=== PATIENT | female | born 1980 | race Caucasian/White ===

== ENCOUNTER 2016-08-28 19:49 | Emergency (ER) | payer MEDICAID ==
[~2016-08-28] VITALS: Ht 157.5 cm; Wt 81.8 kg
[~2016-08-28 19:49] MED LIST: AMBIEN 10MG10 MG PO; AMBIEN 5MG TABLE5 MG PO; AMITRIPTYLINE H25 M1 PO; ATARAX 25MG25 MG/TAB PO; BACTRIM DS 8001 TAB PO; CALAN120 MG; CEPHALEXIN500 M1 PO; DEPAKOTE ER 50500 MG PO; DESYREL 50MG50 MG PO; FETZIMA120 PO; FIORICET 325 MG1 TA1 PO; FLEXERIL10 MG PO; FLOMAX 0.40.4 MG/CAP PO; LAMICTAL 100MG100 MG PO; LAMICTAL 25MG T25 MG PO; LAMICTAL XR300 MG PO; LAMICTAL150 MG PO; LEVAQUIN 5500 MG/TA1 PO; LEVAQUIN 750MG750 M1 PO; LORTAB 5/500 501 TAB PO; NEURONTIN300 MG/CAP PO; NORCO 325 MG-101 TAB PO; NORCO 325 MG-51 TAB PO; NORCO 325 MG-7.1 TAB PO; PERCOCET 325 MG1 TA2 PO; PERCOCET 325 MG1 TA3 PO; PERCR 7.5 PO; PHENERGAN 25 TA25 MG PO; PHENERGAN25 MG RC; PROAIR HFA0.09 MG/AC IH; PROMETHAZINE12.5 M5 PO; PROVENTIL0.09 MG/A1 IH; PYRIDIUM 100MG100 MG PO; RISPERDAL 1M1 MG/TAB PO; RISPERDAL1 MG PO; SENOKOT S 50 MG1 TAB PO; SINGULAIR; SINGULAIR 110 MG/TAB PO; TESSALON PERLE200 MG PO; TOPAMAX 100MG100 M1 PO; TOPAMAX 100MG100 MG PO; TOPAMAX50 MG PO; VALIUM 2MG T2 MG/TAB PO; XANAX .25M0.25 MG/TA PO; ZITHROMAX Z PA250 MG PO; ZOLOFT 50MG50 MG PO
[2016-08-28 22:19] VITALS: BP 132/82; PULSE 80; TEMP 98
== END 2016-08-28 22:20 | disposition home or self-care (01) ==
LOC: COL.ER 19:49
DX: G43.909 Migraine, unspecified, not intractable, without status migrainosus (principal)
CPT/HCPCS: J1170; J1200; J1885; J2765

== ENCOUNTER 2016-09-03 07:28 | Emergency (ER) | payer MEDICAID ==
[~2016-09-03] VITALS: Ht 157.5 cm; Wt 86.4 kg
[2016-09-03 07:30] VITALS: TEMP 97.5
[2016-09-03] MEDS ORDERED: IMITREX ST6 MG/0.51 SQ (07:42)
[2016-09-03] MEDS ORDERED: ZANAFLEX 4MG TAB4 MG PO (07:48)
[2016-09-03] MEDS ORDERED: NAMENDA 10MG TA10 MG PO (07:49)
[2016-09-03 08:23] VITALS: BP 132/79; PULSE 74
== END 2016-09-03 08:27 | disposition home or self-care (01) ==
LOC: COL.ER 07:28
DX: R07.9 Chest pain, unspecified (principal); T39.8X5A Adverse effect of other nonopioid analgesics and antipyretics, not elsewhere classified, initial encounter

== ENCOUNTER 2016-09-04 14:44 | Emergency (ER) | payer MEDICAID ==
[~2016-09-04] VITALS: Ht 157.5 cm; Wt 86.4 kg
[~2016-09-04 14:44] MED LIST changes: +IMITREX ST6 MG/0.51 SQ; +NAMENDA 10MG TA10 MG PO; +ZANAFLEX 4MG TAB4 MG PO
[2016-09-04 14:45] VITALS: TEMP 98.8
[2016-09-04 15:37] LABS: BASO # 0.1 (0.0-0.2); EOS # 0.2 (0.0-0.7); EOS % 2.7 % (0-4.0); GRAN # 2.6 (1.4-6.5); GRAN % 44.7 % (42.2-75.2); HEMATOCRIT 37.4 % (37.0-47.0); HEMOGLOBIN 12.6 g/dl (12.5-16.0); LYMPH # 2.5 (1.2-3.4); LYMPH % 42.3 % (20.0-51.0); MEAN CELL VOLUME 91 fl (80.0-100.0); MEAN CORPUSCULAR HEMOGLOBIN 31 pg (27.0-31.0); MEAN CORPUSCULAR HGB CONC 34 g/dl (33.0-37.0); MEAN PLATELET VOLUME 9.6 fl (7.4-10.4); MONO # 0.5 (0.1-0.6); PLATELET COUNT 290 K/mm3 (130-400); RED BLOOD COUNT 4.13 M/mm3 (4.10-5.30); REDCELL DISTRIBUTION WIDTH-CV 12.2 % (11.5-14.5); WHITE BLOOD COUNT 5.9 K/mm3 (4.8-10.8)
[2016-09-04 15:54] LABS: ADJUSTED CALCIUM 9.6 mg/dL (8.4-10.2); ALANINE AMINOTRANSFERASE 142 U/L (9-52); ALBUMIN 3.9 gm/dL (3.5-5.0); ALKALINE PHOSPHATASE 157 U/L (50-136); ANION GAP 12 mmol/L (7-16); BILIRUBIN,TOTAL 0.5 mg/dL (0.0-1.0); BLOOD UREA NITROGEN 14 mg/dL (7-17); C-REACTIVE PROTEIN 0.7 mg/dL (0.0-0.9); CALCIUM 9.5 mg/dL (8.4-10.2); CARBON DIOXIDE 25 mmol/L (22-30); CHLORIDE 104 mmol/L (98-107); CREATININE, serum 1.05 mg/dL (0.52-1.25); GLUCOSE 103 mg/dL (74-106); POTASSIUM 3.6 mmol/L (3.4-5.0); SODIUM 141 mmol/L (137-145)
[2016-09-04 16:03] LABS: TROPONIN-I < 0.012 ng/mL (0.000-0.034)
[2016-09-04 16:33] VITALS: BP 136/89; PULSE 93
== END 2016-09-04 16:46 | disposition home or self-care (01) ==
LOC: COL.ER 14:44
PROVIDERS: Physician Assistant
DX: R51 Headache (principal); R74.8 Abnormal levels of other serum enzymes; R03.0 Elevated blood-pressure reading, without diagnosis of hypertension
CPT/HCPCS: J1885

== ENCOUNTER 2016-09-22 19:16 | Emergency (ER) | payer MEDICAID ==
[~2016-09-22] VITALS: Ht 157.5 cm; Wt 86.4 kg
[2016-09-22 19:18] VITALS: TEMP 98.2
[2016-09-22] MEDS ORDERED: TOPROL XL 25MG25 MG PO (19:24)
[2016-09-22] MEDS ORDERED: SONATA5 MG (19:25)
[2016-09-22 22:43] VITALS: BP 150/92; PULSE 88
== END 2016-09-22 22:45 | disposition home or self-care (01) ==
LOC: COL.ER 19:16
DX: R07.9 Chest pain, unspecified (principal); I10 Essential (primary) hypertension
CPT/HCPCS: J1885

== ENCOUNTER 2016-10-02 19:17 | Emergency (ER) | payer MEDICAID ==
[~2016-10-02] VITALS: Ht 157.5 cm; Wt 86.4 kg
[2016-10-02 20:10] VITALS: BP 120/78; PULSE 80; TEMP 98.3
== END 2016-10-02 20:17 | disposition home or self-care (01) ==
LOC: COL.ER 19:17
DX: G43.909 Migraine, unspecified, not intractable, without status migrainosus (principal)
CPT/HCPCS: J1170; J1885; J2550

== ENCOUNTER → 2016-10-02 | Outpatient (CLI) | payer MEDICAID ==
[~2016-10-02] MED LIST changes: +SONATA5 MG; +TOPROL XL 25MG25 MG PO
== END ==
LOC: COL.RAD 10:00
DX: R07.89 Other chest pain (principal)

== ENCOUNTER 2017-11-21 21:02 | Emergency (ER) | payer MEDICAID ==
[~2017-11-21] VITALS: Ht 157.5 cm; Wt 93.6 kg
[2017-11-21 21:08] VITALS: BP 143/94; TEMP 98.2
[2017-11-21 22:22] VITALS: PULSE 88
== END 2017-11-21 22:24 | disposition home or self-care (01) ==
LOC: COL.ER 21:02
DX: G43.909 Migraine, unspecified, not intractable, without status migrainosus (principal); J45.909 Unspecified asthma, uncomplicated; F31.9 Bipolar disorder, unspecified; F41.9 Anxiety disorder, unspecified; F43.10 Post-traumatic stress disorder, unspecified
CPT/HCPCS: J0595; J1200; J1885; J2765

== ENCOUNTER 2017-11-27 21:54 | Emergency (ER) | payer MEDICAID ==
[~2017-11-27] VITALS: Ht 157.5 cm; Wt 93.6 kg
[2017-11-27 22:13] VITALS: BP 138/89; PULSE 93; TEMP 97.6
== END 2017-11-28 00:05 | disposition home or self-care (01) ==
LOC: COL.ER 21:54
DX: S40.012A Contusion of left shoulder, initial encounter (principal); J45.909 Unspecified asthma, uncomplicated; F43.10 Post-traumatic stress disorder, unspecified; F41.9 Anxiety disorder, unspecified; F31.9 Bipolar disorder, unspecified; G43.909 Migraine, unspecified, not intractable, without status migrainosus; W01.0XXA Fall on same level from slipping, tripping and stumbling without subsequent striking against object, initial encounter; Y92.410 Unspecified street and highway as the place of occurrence of the external cause

== ENCOUNTER 2017-12-11 15:53 | Emergency (ER) | payer MEDICAID ==
[~2017-12-11] VITALS: Ht 157.5 cm; Wt 92.3 kg
[2017-12-11 15:56] VITALS: TEMP 97.9
[2017-12-11 16:47] LABS: COLLECTION METHOD CLEAN CATCH
[2017-12-11 16:56] LABS: MUCOUS Present /lpf; PH 5 (5-8); URINE APPEARANCE Clear; URINE BACTERIA Rare /hpf; URINE BILIRUBIN Negative (NEGATIVE); URINE BLOOD Negative (NEGATIVE); URINE COLOR Yellow; URINE GLUCOSE Negative (NEGATIVE); URINE KETONE Negative (NEGATIVE); URINE LEUKOCYTE ESTERASE Negative (NEGATIVE); URINE NITRATE Negative (NEGATIVE); URINE PROTEIN(semi-quant) Negative (NEGATIVE); URINE RBC 0-2 /hpf; URINE UROBILINOGEN Negative (NEGATIVE)
[2017-12-11 17:34] VITALS: BP 131/84; PULSE 94
[2017-12-11] MEDS ORDERED: LIDODERM 5% PATC1 EA TP (18:08)
== END 2017-12-11 18:20 | disposition home or self-care (01) ==
LOC: COL.ER 15:53
PROVIDERS: Emergency Medicine
DX: M54.5 Low back pain (principal); Z87.442 Personal history of urinary calculi; Z90.49 Acquired absence of other specified parts of digestive tract; Z90.710 Acquired absence of both cervix and uterus
CPT/HCPCS: J1885

== ENCOUNTER 2017-12-20 20:53 | Emergency (ER) | payer MEDICAID ==
[~2017-12-20] VITALS: Ht 157.5 cm; Wt 90.5 kg
[~2017-12-20 20:53] MED LIST changes: +LIDODERM 5% PATC1 EA TP
[2017-12-20 20:59] VITALS: BP 157/91; TEMP 98.2
[2017-12-20] MEDS ORDERED: CEFTIN 250250 MG/TAB PO (22:52)
[2017-12-20 23:01] VITALS: PULSE 80
== END 2017-12-20 23:01 | disposition home or self-care (01) ==
LOC: COL.ER 20:53
DX: J02.0 Streptococcal pharyngitis (principal); J45.909 Unspecified asthma, uncomplicated; F41.9 Anxiety disorder, unspecified; F31.9 Bipolar disorder, unspecified; G43.909 Migraine, unspecified, not intractable, without status migrainosus; F43.10 Post-traumatic stress disorder, unspecified; G89.29 Other chronic pain; M54.9 Dorsalgia, unspecified; Z90.49 Acquired absence of other specified parts of digestive tract; Z90.710 Acquired absence of both cervix and uterus; Z98.51 Tubal ligation status

== ENCOUNTER 2018-01-07 17:01 | Emergency (ER) | payer MEDICAID ==
[~2018-01-07] VITALS: Ht 157.5 cm; Wt 89.5 kg
[~2018-01-07 17:01] MED LIST changes: +CEFTIN 250250 MG/TAB PO
[2018-01-07 17:06] VITALS: BP 147/88; TEMP 98.3
[2018-01-07] MEDS ORDERED: ZOLOFT 100MG100 MG PO (17:29)
[2018-01-07] MEDS ORDERED: ERGOCALCIFER50000 IU PO (17:29)
[2018-01-07] MEDS ORDERED: COMPAZINE 110 MG/TAB PO (17:30)
[2018-01-07 18:40] VITALS: PULSE 96
== END 2018-01-07 18:40 | disposition home or self-care (01) ==
LOC: COL.ER 17:01
DX: G43.909 Migraine, unspecified, not intractable, without status migrainosus (principal); F41.9 Anxiety disorder, unspecified; F43.10 Post-traumatic stress disorder, unspecified; Z90.710 Acquired absence of both cervix and uterus
CPT/HCPCS: J0595; J1200; J1885; J2765

== ENCOUNTER 2018-01-11 13:58 | Emergency (ER) | payer MEDICAID ==
[~2018-01-11] VITALS: Ht 157.5 cm; Wt 89.5 kg
[~2018-01-11 13:58] MED LIST changes: +COMPAZINE 110 MG/TAB PO; +ERGOCALCIFER50000 IU PO; +ZOLOFT 100MG100 MG PO
[2018-01-11 14:06] VITALS: BP 157/93; PULSE 95; TEMP 97.8
[2018-01-11] MEDS ORDERED: CARDIZEM CD 30300 MG PO (14:29)
== END 2018-01-11 16:16 | disposition home or self-care (01) ==
LOC: COL.ER 13:58
DX: G43.909 Migraine, unspecified, not intractable, without status migrainosus (principal); F31.9 Bipolar disorder, unspecified; Z90.49 Acquired absence of other specified parts of digestive tract; Z98.51 Tubal ligation status; Z98.890 Other specified postprocedural states
CPT/HCPCS: J1885; J2550

== ENCOUNTER 2018-02-17 14:21 | Emergency (ER) | payer MEDICAID ==
[~2018-02-17] VITALS: Ht 157.5 cm; Wt 88.2 kg
[~2018-02-17 14:21] MED LIST changes: +CARDIZEM CD 24240 MG PO
[2018-02-17 14:27] VITALS: BP 140/92; TEMP 98
[2018-02-17] MEDS ORDERED: FIORICET 325 MG1 TA1 PO (14:37)
[2018-02-17] MEDS ORDERED: DESYREL DIVIDO150 M1 PO (15:09)
[2018-02-17] MEDS ORDERED: PERCOCET 325 MG1 TAB PO (15:09)
[2018-02-17] MEDS ORDERED: ZOFRAN ODT4 MG PO (15:10)
[2018-02-17] MEDS ORDERED: ZANAFLEX 4MG TAB4 MG PO (15:10)
[2018-02-17] MEDS ORDERED: PROTONIX 40MG T40 MG PO (15:10)
[2018-02-17 15:12] LABS: BASO % 0.6 % (0.0-2.0); EOS # 0.2 (0.0-0.7); EOS % 2.9 % (0-4.0); GRAN # 2.7 (1.4-6.5); GRAN % 52.2 % (42.2-75.2); HEMATOCRIT 41.9 % (37.0-47.0); LYMPH # 1.9 (1.2-3.4); LYMPH % 36.8 % (20.0-51.0); MEAN CELL VOLUME 93 fl (80.0-100.0); MEAN CORPUSCULAR HEMOGLOBIN 31 pg (27.0-31.0); MEAN CORPUSCULAR HGB CONC 33 g/dl (33.0-37.0); MEAN PLATELET VOLUME 10.1 fl (7.4-10.4); MONO # 0.4 (0.1-0.6); MONO % 7.3 % (1.7-9.3); PLATELET COUNT 280 K/mm3 (130-400); RED BLOOD COUNT 4.49 M/mm3 (4.10-5.30)
[2018-02-17 15:16] LABS: PROTHROMBIN TIME 11.1 SECONDS (9.7-12.8)
[2018-02-17 15:19] LABS: PARTIAL THROMBOPLASTIN TIME 31.6 SECONDS (26.0-37.0)
[2018-02-17 15:25] LABS: ALANINE AMINOTRANSFERASE 48 U/L (9-52); ALBUMIN 4.2 gm/dL (3.5-5.0); ALKALINE PHOSPHATASE 113 U/L (50-136); ANION GAP 13 mmol/L (7-16); AST,SGOT 25 U/L (15-37); BILIRUBIN,TOTAL 0.2 mg/dL (0.0-1.0); BLOOD UREA NITROGEN 17 mg/dL (7-17); CALCIUM 9.5 mg/dL (8.4-10.2); CARBON DIOXIDE 26 mmol/L (22-30); CHLORIDE 104 mmol/L (98-107); CREATININE, serum 0.87 mg/dL (0.52-1.25); GLUCOSE 96 mg/dL (74-106); POTASSIUM 3.6 mmol/L (3.4-5.0); SODIUM 142 mmol/L (137-145); TOTAL PROTEIN 7.3 gm/dL (6.4-8.2)
[2018-02-17 15:35] LABS: TROPONIN-I < 0.012 ng/mL (0.000-0.034)
[2018-02-17 18:11] VITALS: PULSE 87
== END 2018-02-17 18:10 | disposition home or self-care (01) ==
LOC: COL.ER 14:21
PROVIDERS: Family Medicine
DX: I49.3 Ventricular premature depolarization (principal); G89.29 Other chronic pain; R07.89 Other chest pain; F41.9 Anxiety disorder, unspecified; G43.909 Migraine, unspecified, not intractable, without status migrainosus
CPT/HCPCS: J1170; J1885; J2060; J2550; J7030

== ENCOUNTER 2018-02-26 23:43 | Emergency (ER) | payer MEDICAID ==
[~2018-02-26 23:43] MED LIST changes: +DESYREL DIVIDO150 M1 PO; +PERCOCET 325 MG1 TAB PO; +PROTONIX 40MG T40 MG PO; +ZOFRAN ODT4 MG PO
[2018-02-27 00:35] LABS: BASO # 0.1 (0.0-0.2); BASO % 0.6 % (0.0-2.0); EOS # 0.2 (0.0-0.7); EOS % 2.3 % (0-4.0); GRAN # 5.1 (1.4-6.5); GRAN % 56.5 % (42.2-75.2); HEMATOCRIT 41.7 % (37.0-47.0); HEMOGLOBIN 14.3 g/dl (12.5-16.0); LYMPH # 2.9 (1.2-3.4); LYMPH % 31.8 % (20.0-51.0); MEAN CELL VOLUME 91 fl (80.0-100.0); MEAN CORPUSCULAR HEMOGLOBIN 31 pg (27.0-31.0); MEAN CORPUSCULAR HGB CONC 34 g/dl (33.0-37.0); MEAN PLATELET VOLUME 9.7 fl (7.4-10.4); MONO # 0.8 (0.1-0.6); MONO % 8.7 % (1.7-9.3); PLATELET COUNT 330 K/mm3 (130-400); RED BLOOD COUNT 4.59 M/mm3 (4.10-5.30); REDCELL DISTRIBUTION WIDTH-CV 12.1 % (11.5-14.5)
[2018-02-27 00:45] LABS: ALANINE AMINOTRANSFERASE 89 U/L (9-52); ALBUMIN 4.6 gm/dL (3.5-5.0); ALCOHOL(ethanol),MEDICAL 150 mg/dL; ALKALINE PHOSPHATASE 157 U/L (50-136); ANION GAP 21 mmol/L (7-16); AST,SGOT 54 U/L (15-37); BILIRUBIN,TOTAL 0.2 mg/dL (0.0-1.0); BLOOD UREA NITROGEN 17 mg/dL (7-17); CALCIUM 9.3 mg/dL (8.4-10.2); CARBON DIOXIDE 17 mmol/L (22-30); CHLORIDE 105 mmol/L (98-107); CREATININE, serum 0.93 mg/dL (0.52-1.25); GLUCOSE 109 mg/dL (74-106); POTASSIUM 3.5 mmol/L (3.4-5.0); SODIUM 143 mmol/L (137-145); TOTAL PROTEIN 8.1 gm/dL (6.4-8.2)
[2018-02-27 00:50] LABS: ACETAMINOPHEN < 10 ug/mL (10-30); SALICYLATE < 1.0 mg/dL
[2018-02-27 00:52] LABS: COLLECTION METHOD CLEAN CATCH
[2018-02-27 01:04] LABS: AMORPHOUS CRYSTAL Present /uL; PH 5 (5-8); SQUAMOUS EPITHELIAL None Seen /hpf; URINE APPEARANCE Clear; URINE BACTERIA None Seen /hpf; URINE BILIRUBIN Negative (NEGATIVE); URINE BLOOD Negative (NEGATIVE); URINE COLOR Straw; URINE GLUCOSE Negative (NEGATIVE); URINE KETONE Negative (NEGATIVE); URINE LEUKOCYTE ESTERASE Negative (NEGATIVE); URINE NITRATE Negative (NEGATIVE); URINE PROTEIN(semi-quant) Negative (NEGATIVE); URINE RBC 0-2 /hpf; URINE UROBILINOGEN Negative (NEGATIVE)
[2018-02-27 01:07] LABS: TRICYCLIC ANTIDEPRESS URINE NEGATIVE
[2018-02-27 14:00] VITALS: TEMP 97.5
[2018-02-28 14:22] VITALS: BP 161/106; PULSE 108
== END 2018-02-28 14:23 ==
LOC: COL.ER 23:43
PROVIDERS: Emergency Medicine
DX: R45.851 Suicidal ideations (principal); R45.1 Restlessness and agitation; F10.129 Alcohol abuse with intoxication, unspecified; Y90.6 Blood alcohol level of 120-199 mg/100 ml
CPT/HCPCS: J1630; J2060; J7030

== ENCOUNTER 2018-04-02 17:01 | Emergency (ER) | payer MEDICAID ==
[~2018-04-02] VITALS: Ht 157.5 cm; Wt 88.6 kg
[2018-04-02 17:07] VITALS: BP 137/84; PULSE 90; TEMP 98.5
[2018-04-02] MEDS ORDERED: TAMBOCOR50 MG PO (17:33)
[2018-04-02] MEDS ORDERED: TORADOL 10MG TA10 MG PO (17:33)
== END 2018-04-02 18:29 | disposition home or self-care (01) ==
LOC: COL.ER 17:01
DX: G43.909 Migraine, unspecified, not intractable, without status migrainosus (principal); I10 Essential (primary) hypertension; J45.909 Unspecified asthma, uncomplicated; F41.9 Anxiety disorder, unspecified; F43.10 Post-traumatic stress disorder, unspecified; F31.9 Bipolar disorder, unspecified; Z90.49 Acquired absence of other specified parts of digestive tract; Z90.710 Acquired absence of both cervix and uterus
CPT/HCPCS: J0595; J1200; J1885; J2765

== ENCOUNTER 2018-04-06 12:20 | Emergency (ER) | payer MEDICAID ==
[~2018-04-06] VITALS: Ht 157.5 cm; Wt 88.6 kg
[~2018-04-06 12:20] MED LIST changes: +TAMBOCOR50 MG PO; +TORADOL 10MG TA10 MG PO
[2018-04-06 12:22] VITALS: BP 137/85; TEMP 98.2
[2018-04-06 13:43] VITALS: PULSE 77
== END 2018-04-06 13:45 | disposition home or self-care (01) ==
LOC: COL.ER 12:20
DX: G43.909 Migraine, unspecified, not intractable, without status migrainosus (principal); J45.909 Unspecified asthma, uncomplicated; F43.10 Post-traumatic stress disorder, unspecified; F17.210 Nicotine dependence, cigarettes, uncomplicated; F31.9 Bipolar disorder, unspecified; F41.9 Anxiety disorder, unspecified; Z90.49 Acquired absence of other specified parts of digestive tract; Z90.710 Acquired absence of both cervix and uterus; Z98.51 Tubal ligation status
CPT/HCPCS: J1200; J1885; J2405

== ENCOUNTER 2018-04-14 18:25 | Emergency (ER) | payer MEDICAID ==
[~2018-04-14] VITALS: Ht 157.5 cm; Wt 85.9 kg
[2018-04-14 18:28] VITALS: TEMP 98.6
[2018-04-14 19:16] LABS: BASO % 0.4 % (0.0-2.0); EOS # 0.2 (0.0-0.7); EOS % 1.8 % (0-4.0); GRAN # 5.2 (1.4-6.5); HEMATOCRIT 39.2 % (37.0-47.0); HEMOGLOBIN 13.1 g/dl (12.5-16.0); LYMPH % 33.1 % (20.0-51.0); MEAN CELL VOLUME 91 fl (80.0-100.0); MEAN CORPUSCULAR HEMOGLOBIN 31 pg (27.0-31.0); MEAN CORPUSCULAR HGB CONC 33 g/dl (33.0-37.0); MEAN PLATELET VOLUME 9.3 fl (7.4-10.4); MONO # 0.6 (0.1-0.6); MONO % 6.6 % (1.7-9.3); PLATELET COUNT 394 K/mm3 (130-400); REDCELL DISTRIBUTION WIDTH-CV 11.9 % (11.5-14.5)
[2018-04-14 19:34] LABS: ALBUMIN 4.4 gm/dL (3.5-5.0); BILIRUBIN,TOTAL 0.3 mg/dL (0.0-1.0); C-REACTIVE PROTEIN 1.1 mg/dL (0.0-0.9); CALCIUM 9.3 mg/dL (8.4-10.2); CREATININE, serum 0.81 mg/dL (0.52-1.25); POTASSIUM 3.5 mmol/L (3.4-5.0); TOTAL PROTEIN 7.7 gm/dL (6.4-8.2)
[2018-04-14 19:45] LABS: TROPONIN-I 0.371 ng/mL (0.000-0.034)
[2018-04-14 22:38] VITALS: BP 148/104; PULSE 76
== END 2018-04-14 22:28 | disposition home or self-care (01) ==
LOC: COL.ER 18:25
PROVIDERS: Emergency Medicine
DX: R07.89 Other chest pain (principal); R79.89 Other specified abnormal findings of blood chemistry; K21.9 Gastro-esophageal reflux disease without esophagitis; Z48.812 Encounter for surgical aftercare following surgery on the circulatory system; Z90.710 Acquired absence of both cervix and uterus; Z98.890 Other specified postprocedural states
CPT/HCPCS: J7030

== ENCOUNTER 2018-04-17 21:57 | Emergency (ER) | payer MEDICAID ==
[~2018-04-17] VITALS: Ht 157.5 cm; Wt 85.9 kg
[2018-04-17 22:05] VITALS: BP 138/89; TEMP 98
[2018-04-17 23:26] VITALS: PULSE 89
== END 2018-04-17 23:27 | disposition home or self-care (01) ==
LOC: COL.ER 21:57
DX: S39.012A Strain of muscle, fascia and tendon of lower back, initial encounter (principal); I10 Essential (primary) hypertension; G43.909 Migraine, unspecified, not intractable, without status migrainosus; Z87.891 Personal history of nicotine dependence; X50.0XXA Overexertion from strenuous movement or load, initial encounter
CPT/HCPCS: J1200; J1885

== ENCOUNTER 2018-05-23 18:15 | Emergency (ER) | payer MEDICAID ==
[~2018-05-23] VITALS: Ht 157.5 cm; Wt 85.9 kg
[2018-05-23 18:17] VITALS: TEMP 97.8
[2018-05-23 21:27] VITALS: BP 137/87; PULSE 71
== END 2018-05-23 21:27 | disposition home or self-care (01) ==
LOC: COL.ER 18:15
DX: G43.909 Migraine, unspecified, not intractable, without status migrainosus (principal); F43.10 Post-traumatic stress disorder, unspecified; F31.9 Bipolar disorder, unspecified; F41.9 Anxiety disorder, unspecified; Z90.49 Acquired absence of other specified parts of digestive tract; Z90.710 Acquired absence of both cervix and uterus
CPT/HCPCS: J1885; J2550

== ENCOUNTER 2018-06-24 19:09 | Emergency (ER) | payer MEDICAID ==
[~2018-06-24] VITALS: Ht 157.5 cm; Wt 86.4 kg
[2018-06-24 19:14] VITALS: BP 144/108; TEMP 99.2
[2018-06-24 21:25] VITALS: PULSE 94
== END 2018-06-24 21:25 | disposition home or self-care (01) ==
LOC: COL.ER 19:09
DX: G43.909 Migraine, unspecified, not intractable, without status migrainosus (principal); R11.2 Nausea with vomiting, unspecified; Z90.710 Acquired absence of both cervix and uterus; Z90.49 Acquired absence of other specified parts of digestive tract; Z98.51 Tubal ligation status
CPT/HCPCS: J1100; J1200; J1885; J2765

== ENCOUNTER 2018-07-03 19:22 | Emergency (ER) | payer MEDICAID ==
[~2018-07-03] VITALS: Ht 157.5 cm; Wt 86.4 kg
[2018-07-03 19:24] VITALS: BP 138/90; TEMP 98
[2018-07-03 19:57] LABS: COLLECTION METHOD CLEAN CATCH
[2018-07-03 19:57] LABS: BASO % 0.5 % (0.0-2.0); EOS # 0.2 (0.0-0.7); EOS % 3.2 % (0-4.0); GRAN # 3.6 (1.4-6.5); GRAN % 48.4 % (42.2-75.2); HEMOGLOBIN 13.8 g/dl (12.5-16.0); LYMPH # 2.9 (1.2-3.4); LYMPH % 39.2 % (20.0-51.0); MEAN CELL VOLUME 91 fl (80.0-100.0); MEAN CORPUSCULAR HEMOGLOBIN 31 pg (27.0-31.0); MEAN CORPUSCULAR HGB CONC 34 g/dl (33.0-37.0); MONO # 0.6 (0.1-0.6); MONO % 8.4 % (1.7-9.3); PLATELET COUNT 286 K/mm3 (130-400); RED BLOOD COUNT 4.49 M/mm3 (4.10-5.30); REDCELL DISTRIBUTION WIDTH-CV 12.3 % (11.5-14.5)
[2018-07-03 20:07] LABS: MUCOUS Present /lpf; PH 5 (5-8); URINE APPEARANCE Cloudy; URINE BACTERIA None Seen /hpf; URINE BILIRUBIN Negative (NEGATIVE); URINE BLOOD Negative (NEGATIVE); URINE COLOR Yellow; URINE GLUCOSE Negative (NEGATIVE); URINE KETONE Negative (NEGATIVE); URINE LEUKOCYTE ESTERASE Negative (NEGATIVE); URINE NITRATE Negative (NEGATIVE); URINE PROTEIN(semi-quant) Negative (NEGATIVE); URINE RBC 0-2 /hpf; URINE UROBILINOGEN Negative (NEGATIVE)
[2018-07-03 20:10] LABS: ALANINE AMINOTRANSFERASE 29 U/L (9-52); ALBUMIN 4.2 gm/dL (3.5-5.0); ALKALINE PHOSPHATASE 131 U/L (50-136); ANION GAP 6 mmol/L (7-16); AST,SGOT 27 U/L (15-37); BILIRUBIN,TOTAL 0.2 mg/dL (0.0-1.0); BLOOD UREA NITROGEN 17 mg/dL (7-17); CALCIUM 9.1 mg/dL (8.4-10.2); CARBON DIOXIDE 28 mmol/L (22-30); CHLORIDE 106 mmol/L (98-107); CREATININE, serum 0.78 mg/dL (0.52-1.25); GLUCOSE 92 mg/dL (74-106); POTASSIUM 3.7 mmol/L (3.4-5.0); SODIUM 140 mmol/L (137-145); TOTAL PROTEIN 7.4 gm/dL (6.4-8.2)
[2018-07-03 20:11] LABS: C-REACTIVE PROTEIN < 0.5 mg/dL (0.0-0.9)
[2018-07-03 20:40] VITALS: PULSE 86
== END 2018-07-03 20:40 | disposition home or self-care (01) ==
LOC: COL.ER 19:22
DX: R10.31 Right lower quadrant pain (principal); F43.10 Post-traumatic stress disorder, unspecified; F31.9 Bipolar disorder, unspecified; F41.9 Anxiety disorder, unspecified; Z90.710 Acquired absence of both cervix and uterus; Z88.0 Allergy status to penicillin; Z88.5 Allergy status to narcotic agent; Z90.49 Acquired absence of other specified parts of digestive tract

== ENCOUNTER 2018-07-16 16:58 | Emergency (ER) | payer MEDICAID ==
[~2018-07-16] VITALS: Ht 157.5 cm; Wt 86.4 kg
[2018-07-16 17:18] VITALS: BP 147/99; PULSE 84; TEMP 98.1
== END 2018-07-16 18:40 | disposition left against medical advice (07) ==
LOC: COL.ER 16:58
DX: G43.909 Migraine, unspecified, not intractable, without status migrainosus (principal)

== ENCOUNTER 2018-08-01 16:09 | Emergency (ER) | payer MEDICAID ==
[~2018-08-01] VITALS: Ht 157.5 cm; Wt 81.8 kg
[2018-08-01] MEDS ORDERED: ZOVIRAX400 MG PO (17:34)
[2018-08-01] MEDS ORDERED: DOXYCYCLINE 10100 MG PO (17:34)
[2018-08-01 17:58] VITALS: BP 139/92; PULSE 102; TEMP 98.9
== END 2018-08-01 18:05 | disposition home or self-care (01) ==
LOC: COL.ER 16:09
DX: J20.9 Acute bronchitis, unspecified (principal); J45.909 Unspecified asthma, uncomplicated; F41.9 Anxiety disorder, unspecified; B00.2 Herpesviral gingivostomatitis and pharyngotonsillitis; Z90.710 Acquired absence of both cervix and uterus

== ENCOUNTER 2018-08-26 11:02 | Emergency (ER) | payer OTHER ==
[~2018-08-26] VITALS: Ht 157.5 cm; Wt 86.4 kg
[~2018-08-26 11:02] MED LIST changes: +DOXYCYCLINE 10100 MG PO; +ZOVIRAX400 MG PO
[2018-08-26 11:10] VITALS: TEMP 97.2
[2018-08-26] MEDS ORDERED: FLEXERIL 1010 MG/TAB PO (12:11)
[2018-08-26] MEDS ORDERED: MEDROL 4MG DOSPA4 MG PO (12:11)
[2018-08-26] MEDS ORDERED: LIDODERM 5% PATC1 EA TP (12:11)
[2018-08-26] MEDS ORDERED: ZANAFLEX 4MG TAB4 MG PO (12:46)
[2018-08-26 12:52] VITALS: BP 158/94; PULSE 93
== END 2018-08-26 12:53 | disposition home or self-care (01) ==
LOC: COL.ER 11:02
DX: S39.012A Strain of muscle, fascia and tendon of lower back, initial encounter (principal); M54.42 Lumbago with sciatica, left side; F31.9 Bipolar disorder, unspecified; F43.10 Post-traumatic stress disorder, unspecified; G43.909 Migraine, unspecified, not intractable, without status migrainosus; F41.9 Anxiety disorder, unspecified; Z90.49 Acquired absence of other specified parts of digestive tract; Z90.710 Acquired absence of both cervix and uterus
CPT/HCPCS: J1170; J1885

== ENCOUNTER → 2018-09-26 | Outpatient (CLI) | payer MEDICAID ==
[~2018-09-26] MED LIST changes: +FLEXERIL 1010 MG/TAB PO; +MEDROL 4MG DOSPA4 MG PO
== END ==
LOC: COL.RAD 10:18
DX: G43.719 Chronic migraine without aura, intractable, without status migrainosus (principal)
CPT/HCPCS: A9585

== ENCOUNTER 2018-10-06 02:19 | Emergency (ER) | payer MEDICAID ==
[~2018-10-06] VITALS: Ht 157.5 cm; Wt 90.0 kg
[2018-10-06 02:25] VITALS: TEMP 98.4
[2018-10-06 02:40] LABS: BASO # 0.1 (0.0-0.2); BASO % 0.8 % (0.0-2.0); EOS # 0.2 (0.0-0.7); EOS % 2.1 % (0-4.0); GRAN # 3.4 (1.4-6.5); GRAN % 46.8 % (42.2-75.2); HEMATOCRIT 39.3 % (37.0-47.0); HEMOGLOBIN 13.4 g/dl (12.5-16.0); LYMPH # 2.9 (1.2-3.4); LYMPH % 40.7 % (20.0-51.0); MEAN CELL VOLUME 91 fl (80.0-100.0); MEAN CORPUSCULAR HEMOGLOBIN 31 pg (27.0-31.0); MEAN CORPUSCULAR HGB CONC 34 g/dl (33.0-37.0); MEAN PLATELET VOLUME 9.2 fl (7.4-10.4); MONO # 0.7 (0.1-0.6); MONO % 9.3 % (1.7-9.3); PLATELET COUNT 269 K/mm3 (130-400); REDCELL DISTRIBUTION WIDTH-CV 11.9 % (11.5-14.5)
[2018-10-06 02:49] LABS: ALBUMIN 4.2 gm/dL (3.5-5.0); BILIRUBIN,TOTAL 0.2 mg/dL (0.0-1.0); CALCIUM 9.1 mg/dL (8.4-10.2); CREATININE, serum 0.81 mg/dL (0.52-1.25); POTASSIUM 3.6 mmol/L (3.4-5.0); TOTAL PROTEIN 7.3 gm/dL (6.4-8.2)
[2018-10-06 03:24] LABS: COLLECTION METHOD CLEAN CATCH
[2018-10-06 03:30] LABS: MUCOUS Present /lpf; PH 5 (5-8); URINE APPEARANCE Hazy; URINE BACTERIA None Seen /hpf; URINE BILIRUBIN Negative (NEGATIVE); URINE BLOOD Negative (NEGATIVE); URINE COLOR Yellow; URINE GLUCOSE Negative (NEGATIVE); URINE KETONE Negative (NEGATIVE); URINE LEUKOCYTE ESTERASE Negative (NEGATIVE); URINE NITRATE Negative (NEGATIVE); URINE PROTEIN(semi-quant) Negative (NEGATIVE); URINE RBC 0-2 /hpf; URINE UROBILINOGEN Negative (NEGATIVE)
[2018-10-06] MEDS ORDERED: DOXYCYCLINE 10100 MG PO (03:42)
[2018-10-06 03:50] VITALS: BP 138/97; PULSE 76
== END 2018-10-06 04:00 | disposition home or self-care (01) ==
LOC: COL.ER 02:19
PROVIDERS: Emergency Medicine
DX: R10.12 Left upper quadrant pain (principal); F43.10 Post-traumatic stress disorder, unspecified; G43.909 Migraine, unspecified, not intractable, without status migrainosus; Z90.49 Acquired absence of other specified parts of digestive tract; Z90.710 Acquired absence of both cervix and uterus
CPT/HCPCS: J1885; J2550; J7030; Q9967

== ENCOUNTER 2018-10-09 12:39 | Emergency (ER) | payer MEDICAID ==
[~2018-10-09] VITALS: Ht 157.5 cm; Wt 90.0 kg
[2018-10-09 12:49] VITALS: TEMP 98.5
[2018-10-09] MEDS ORDERED: ZOFRAN ODT4 MG PO (14:42)
[2018-10-09 14:59] VITALS: BP 135/98; PULSE 84
== END 2018-10-09 15:02 | disposition home or self-care (01) ==
LOC: COL.ER 12:39
DX: G43.909 Migraine, unspecified, not intractable, without status migrainosus (principal)
CPT/HCPCS: J1885; J2550

== ENCOUNTER → 2018-10-23 | Emergency (ER) | payer MEDICAID ==
[~2018-10-23] VITALS: Ht 157.5 cm; Wt 86.4 kg
[2018-10-23 14:34] VITALS: TEMP 98.6
[2018-10-23 17:11] VITALS: BP 152/89; PULSE 89
== END ==
LOC: COL.ER 14:18
DX: G43.909 Migraine, unspecified, not intractable, without status migrainosus (principal); I10 Essential (primary) hypertension; F43.10 Post-traumatic stress disorder, unspecified; F31.9 Bipolar disorder, unspecified; Z90.49 Acquired absence of other specified parts of digestive tract; Z90.710 Acquired absence of both cervix and uterus; Z98.890 Other specified postprocedural states
CPT/HCPCS: J1170; J1885; J2550

== ENCOUNTER 2018-11-22 15:08 | Emergency (ER) | payer MEDICAID ==
[~2018-11-22] VITALS: Ht 154.9 cm; Wt 93.2 kg
[2018-11-22 15:12] VITALS: TEMP 97.6
[2018-11-22] MEDS ORDERED: CEFTIN500 MG PO (15:59)
[2018-11-22 16:13] VITALS: BP 149/94; PULSE 104
== END 2018-11-22 16:13 | disposition home or self-care (01) ==
LOC: COL.ER 15:08
DX: J02.9 Acute pharyngitis, unspecified (principal); F32.9 Major depressive disorder, single episode, unspecified; J40 Bronchitis, not specified as acute or chronic

== ENCOUNTER 2019-01-15 20:57 | Observation (INO) | payer MEDICAID ==
[~2019-01-15] VITALS: Ht 157.5 cm; Wt 201.2 kg
[~2019-01-15 20:57] MED LIST changes: +CEFTIN500 MG PO
[2019-01-15 21:41] LABS: BASO % 0.6 % (0.0-2.0); EOS # 0.1 (0.0-0.7); EOS % 1.6 % (0-4.0); GRAN # 3.4 (1.4-6.5); GRAN % 49.6 % (42.2-75.2); HEMATOCRIT 40.9 % (37.0-47.0); HEMOGLOBIN 13.7 g/dl (12.5-16.0); LYMPH # 2.7 (1.2-3.4); LYMPH % 38.4 % (20.0-51.0); MEAN CELL VOLUME 91 fl (80.0-100.0); MEAN CORPUSCULAR HEMOGLOBIN 30 pg (27.0-31.0); MEAN CORPUSCULAR HGB CONC 34 g/dl (33.0-37.0); MEAN PLATELET VOLUME 9.9 fl (7.4-10.4); MONO # 0.7 (0.1-0.6); MONO % 9.7 % (1.7-9.3); PLATELET COUNT 323 K/mm3 (130-400); RED BLOOD COUNT 4.52 M/mm3 (4.10-5.30); REDCELL DISTRIBUTION WIDTH-CV 11.9 % (11.5-14.5)
[2019-01-15 21:52] LABS: ALANINE AMINOTRANSFERASE 8 U/L (9-52); ALKALINE PHOSPHATASE 98 U/L (50-136); ANION GAP 13 mmol/L (7-16); AST,SGOT 28 U/L (15-37); BILIRUBIN,TOTAL 0.4 mg/dL (0.0-1.0); BLOOD UREA NITROGEN 15 mg/dL (7-17); CALCIUM 9.3 mg/dL (8.4-10.2); CARBON DIOXIDE 25 mmol/L (22-30); CHLORIDE 106 mmol/L (98-107); CREATININE, serum 0.79 (0.52-1.25); GLUCOSE 109 mg/dL (74-106); POTASSIUM 3.7 mmol/L (3.4-5.0); SODIUM 143 mmol/L (137-145); TOTAL PROTEIN 7.2 gm/dL (6.4-8.2)
[2019-01-15 21:59] LABS: MAGNESIUM 1.8 mg/dL (1.6-2.3)
[2019-01-15 22:04] LABS: TROPONIN-I < 0.012 ng/mL (0.000-0.035)
[2019-01-16] VITALS (10 sets, daily range): BP systolic 96–151; BP diastolic 54–95; PULSE 70–79; TEMP 88–98.4
[2019-01-16] MEDS ORDERED: PERCOCET 325 MG1 TAB PO (00:12)
[2019-01-16] MEDS ORDERED: SEROQUEL 2525 MG/TAB PO (00:12)
[2019-01-16] MEDS ORDERED: AIMOVIG AU70 MG/1 ML SQ (00:17)
[2019-01-16 02:36] LABS: TROPONIN-I 3 HR POST INITIAL < 0.012 ng/mL (0.000-0.034)
--- NOTE | 2019-01-16 04:45 | NUR ---
Patient arrived from ER at about 2350 on 01/15/19. Patient admitted for chest pain. States the pain is on the left side of her chest and radiates down her left arm. Noted to have hypertension. Metoprolol given in the ER. Troponin negative. Fentanyl given for pain. This was effective. Benadryl given d/t patient stating the adhesive on the telemetry patches was making her itch. Patient given her HS medications as she stated she had not taken them prior to coming to the ER. Family was at bedside when 5 page was completed. Patient currently resting in bed with eyes closed. Blood pressure has improved and at 0400 it was 114/55 with a pulse of 70. NS running to right forearm at 30ml/hr. Will continue to monitor patient.
[2019-01-16 05:06] LABS: BASO % 0.6 % (0.0-2.0); EOS # 0.2 (0.0-0.7); EOS % 2.7 % (0-4.0); GRAN # 2.6 (1.4-6.5); GRAN % 40.9 % (42.2-75.2); LYMPH # 2.9 (1.2-3.4); MEAN CELL VOLUME 91 fl (80.0-100.0); MEAN CORPUSCULAR HEMOGLOBIN 31 pg (27.0-31.0); MEAN CORPUSCULAR HGB CONC 34 g/dl (33.0-37.0); MEAN PLATELET VOLUME 10.6 fl (7.4-10.4); MONO # 0.6 (0.1-0.6); MONO % 9.6 % (1.7-9.3); PLATELET COUNT 310 K/mm3 (130-400); RED BLOOD COUNT 4.19 M/mm3 (4.10-5.30)
[2019-01-16 05:07] LABS: PROTHROMBIN TIME 11.1 SECONDS (9.7-12.8)
[2019-01-16 05:09] LABS: PARTIAL THROMBOPLASTIN TIME 30.1 SECONDS (26.0-37.0)
[2019-01-16 05:13] LABS: ANION GAP 10 mmol/L (7-16); BLOOD UREA NITROGEN 17 mg/dL (7-17); CALCIUM 9.1 mg/dL (8.4-10.2); CARBON DIOXIDE 25 mmol/L (22-30); CHLORIDE 107 mmol/L (98-107); CHOLESTEROL 130 mg/dL (120-200); CHOLESTEROL RISK RATIO 3.4; CREATININE, serum 0.74 (0.52-1.25); GLUCOSE 103 mg/dL (74-106); HDL CHOLESTEROL 38 mg/dL; LDL CHOLESTEROL 77 mg/dL; POTASSIUM 3.6 mmol/L (3.4-5.0); SODIUM 142 mmol/L (137-145); TRIGLYCERIDE 74 mg/dL
[2019-01-16 05:23] LABS: TROPONIN-I 6 HR POST INITIAL < 0.012 ng/mL (0.000-0.034)
--- NOTE | 2019-01-16 05:59 | NUR ---
Patient denies any chest pain at this time. Vitals stable. Will continue to monitor.
--- NOTE | 2019-01-16 07:14 | NUR ---
Report given to CATE Victor.
--- NOTE | 2019-01-16 08:00 | NUR ---
PATIENT IS ORIENTED BUT DROWSY. VSS. PATIENT CURRENTLY DENIES CHEST PAIN OF SOB. PATIENT PRIMARY COMPLAINT IS MORTON AND CHRONIC BACK PAIN. GAVE PRN PERCOCET WITH AM MEDS PER PATIENT REQUEST. HEAD TO TOE ASSESSMENT WNL. SR ON TELE IN 'S. BOYFRIEND AT BEDSIDE. CALL LIGHT IN REACH.
--- NOTE | 2019-01-16 09:55 | NUR ---
HOSPITALIST CARE TEAM ROUNDING.
[2019-01-16] MEDS ORDERED: LOPRESSOR 225 MG/TAB PO (10:49)
--- NOTE | 2019-01-16 13:00 | NUR ---
PATIENT C/O MORTON AND REQUESTING MORE PERCOCET, GIVEN.
--- NOTE | 2019-01-16 13:59 | NUR ---
JOHN met with the patient and patient's family to discuss discharge plan. The patient lives in [place] with her three children. She reports independence with ADLs and does not use any DME. The patient's primary care provider is [facility] Membreno and [place] [facility] [place] no difficulties obtaining her meds. The patient does not have advanced directives and she was not interested in completing them at this time. The patient plans to return home with her children upon discharge. No additional needs at this time.
--- NOTE | 2019-01-16 15:20 | NUR ---
ECHO AT BEDSIDE.
--- NOTE | 2019-01-16 15:45 | NUR ---
PATIENT DISCHARGING HOME VIA AMBULATORY TO PERSONAL VEHICLE. DC'D IV. GAVE DISCHARGE INSTRUCTIONS AND F/U APT FOR . PATIENT WAS UNABLE TO MAKE F/U WITH PCP BECAUSE OF TO MANY NO SHOWS. PATIENT WILL HAVE TO GO TO PCP OFFICE TO MAKE THAT APT. PATIENT DISCHARGED.
[2019-01-17] MEDS ORDERED: PROTONIX 40MG T40 MG PO (22:35)
== END 2019-01-16 15:45 | disposition home or self-care (01) ==
LOC: COL.ER 20:57 → SURG 23:14
PROVIDERS: Emergency Medicine; Nurse Practitioner Family; ADMIT Hospitalist
DX: R07.9 Chest pain, unspecified (principal); I10 Essential (primary) hypertension; J45.909 Unspecified asthma, uncomplicated; I47.2 Ventricular tachycardia; I49.3 Ventricular premature depolarization; F43.10 Post-traumatic stress disorder, unspecified; F32.9 Major depressive disorder, single episode, unspecified; G47.00 Insomnia, unspecified; E66.9 Obesity, unspecified; Z90.710 Acquired absence of both cervix and uterus; Z90.721 Acquired absence of ovaries, unilateral; Z90.49 Acquired absence of other specified parts of digestive tract; Z82.49 Family history of ischemic heart disease and other diseases of the circulatory system; Z82.3 Family history of stroke; Z88.0 Allergy status to penicillin; Z88.5 Allergy status to narcotic agent; Z88.1 Allergy status to other antibiotic agents; Z88.8 Allergy status to other drugs, medicaments and biological substances; Z79.82 Long term (current) use of aspirin; I08.1 Rheumatic disorders of both mitral and tricuspid valves
CPT/HCPCS: G0378; J1200; J1644; J3010; J7030

== ENCOUNTER 2019-01-17 20:31 | Emergency (ER) | payer MEDICAID ==
[~2019-01-17] VITALS: Ht 157.5 cm; Wt 90.9 kg
[~2019-01-17 20:31] MED LIST changes: +AIMOVIG AU70 MG/1 ML SQ; +LOPRESSOR 225 MG/TAB PO; +SEROQUEL 2525 MG/TAB PO
[2019-01-17 20:40] VITALS: BP 135/94; TEMP 97.8
[2019-01-17 21:30] LABS: BASO % 0.5 % (0.0-2.0); EOS # 0.1 (0.0-0.7); EOS % 1.8 % (0-4.0); GRAN # 2.9 (1.4-6.5); GRAN % 47.4 % (42.2-75.2); HEMATOCRIT 41.2 % (37.0-47.0); HEMOGLOBIN 13.7 g/dl (12.5-16.0); LYMPH # 2.5 (1.2-3.4); LYMPH % 40.1 % (20.0-51.0); MEAN CELL VOLUME 93 fl (80.0-100.0); MEAN CORPUSCULAR HEMOGLOBIN 31 pg (27.0-31.0); MEAN CORPUSCULAR HGB CONC 33 g/dl (33.0-37.0); MEAN PLATELET VOLUME 10.1 fl (7.4-10.4); MONO # 0.6 (0.1-0.6); PLATELET COUNT 314 K/mm3 (130-400); RED BLOOD COUNT 4.44 M/mm3 (4.10-5.30); REDCELL DISTRIBUTION WIDTH-CV 11.9 % (11.5-14.5)
[2019-01-17 21:54] LABS: ALANINE AMINOTRANSFERASE 10 U/L (9-52); ALBUMIN 4.1 gm/dL (3.5-5.0); ALKALINE PHOSPHATASE 104 U/L (50-136); ANION GAP 12 mmol/L (7-16); AST,SGOT 21 U/L (15-37); BILIRUBIN,TOTAL 0.2 mg/dL (0.0-1.0); BLOOD UREA NITROGEN 21 mg/dL (7-17); C-REACTIVE PROTEIN < 0.5 mg/dL (0.0-0.9); CALCIUM 9.2 mg/dL (8.4-10.2); CARBON DIOXIDE 25 mmol/L (22-30); CHLORIDE 105 mmol/L (98-107); CREATININE, serum 0.83 (0.52-1.25); GLUCOSE 97 mg/dL (74-106); LIPASE 245 U/L (23-300); POTASSIUM 3.5 mmol/L (3.4-5.0); SODIUM 141 mmol/L (137-145); TOTAL PROTEIN 7.2 gm/dL (6.4-8.2)
[2019-01-17 22:03] LABS: TROPONIN-I < 0.012 ng/mL (0.000-0.035)
[2019-01-17] MEDS ORDERED: PROTONIX 40MG T40 MG PO (22:35)
[2019-01-17 22:53] VITALS: PULSE 70
== END 2019-01-17 22:53 | disposition home or self-care (01) ==
LOC: COL.ER 20:31
PROVIDERS: Emergency Medicine
DX: R07.89 Other chest pain (principal); I10 Essential (primary) hypertension; F31.9 Bipolar disorder, unspecified; Z90.49 Acquired absence of other specified parts of digestive tract; Z90.710 Acquired absence of both cervix and uterus

== ENCOUNTER 2019-01-24 01:20 | Emergency (ER) | payer MEDICAID ==
[~2019-01-24] VITALS: Ht 157.5 cm; Wt 92.3 kg
[2019-01-24 01:20] VITALS: TEMP 97.6
[2019-01-24] MEDS ORDERED: LIORESAL 1010 MG/TAB PO (01:32)
[2019-01-24 01:52] LABS: BASO % 0.6 % (0.0-2.0); EOS # 0.2 (0.0-0.7); EOS % 3.2 % (0-4.0); GRAN # 2.4 (1.4-6.5); GRAN % 38.2 % (42.2-75.2); HEMATOCRIT 40.1 % (37.0-47.0); HEMOGLOBIN 13.1 g/dl (12.5-16.0); LYMPH # 2.9 (1.2-3.4); LYMPH % 47.3 % (20.0-51.0); MEAN CELL VOLUME 94 fl (80.0-100.0); MEAN CORPUSCULAR HEMOGLOBIN 31 pg (27.0-31.0); MEAN CORPUSCULAR HGB CONC 33 g/dl (33.0-37.0); MEAN PLATELET VOLUME 9.9 fl (7.4-10.4); MONO # 0.7 (0.1-0.6); MONO % 10.5 % (1.7-9.3); PLATELET COUNT 236 K/mm3 (130-400); RED BLOOD COUNT 4.29 M/mm3 (4.10-5.30); REDCELL DISTRIBUTION WIDTH-CV 12.1 % (11.5-14.5)
[2019-01-24 01:59] LABS: ACETAMINOPHEN 12 ug/mL (10-30); ALANINE AMINOTRANSFERASE 45 U/L (9-52); ALBUMIN 3.5 gm/dL (3.5-5.0); ALKALINE PHOSPHATASE 114 U/L (50-136); ANION GAP 8 mmol/L (7-16); AST,SGOT 56 U/L (15-37); BILIRUBIN,TOTAL 0.2 mg/dL (0.0-1.0); BLOOD UREA NITROGEN 12 mg/dL (7-17); CARBON DIOXIDE 28 mmol/L (22-30); CHLORIDE 105 mmol/L (98-107); CREATINE KINASE 55 U/L (30-135); CREATININE, serum 0.92 (0.52-1.25); GLUCOSE 99 mg/dL (74-106); POTASSIUM 3.7 mmol/L (3.4-5.0); SODIUM 141 mmol/L (137-145); TOTAL PROTEIN 6.2 gm/dL (6.4-8.2)
[2019-01-24 02:00] LABS: ALCOHOL(ethanol),MEDICAL < 10 mg/dL; SALICYLATE < 1.0 mg/dL
[2019-01-24 02:08] LABS: TRICYCLIC ANTIDEPRESS URINE POSITIVE
[2019-01-24 02:10] LABS: TROPONIN-I < 0.012 ng/mL (0.000-0.035)
[2019-01-24 05:05] VITALS: BP 93/55; PULSE 66
== END 2019-01-24 05:05 | disposition home or self-care (01) ==
LOC: COL.ER 01:20
PROVIDERS: Emergency Medicine
DX: T50.905A Adverse effect of unspecified drugs, medicaments and biological substances, initial encounter (principal); R40.0 Somnolence; I10 Essential (primary) hypertension; F31.9 Bipolar disorder, unspecified; E66.9 Obesity, unspecified; F43.10 Post-traumatic stress disorder, unspecified; Z90.710 Acquired absence of both cervix and uterus; Z98.51 Tubal ligation status; Z90.49 Acquired absence of other specified parts of digestive tract
CPT/HCPCS: J7030

== ENCOUNTER 2020-03-15 14:21 | Day surgery (SDC) | payer MEDICAID ==
[~2020-03-15] VITALS: Ht 157.5 cm; Wt 99.5 kg
[~2020-03-15 14:21] MED LIST changes: -DESYREL DIVIDO150 M1 PO; +LIORESAL 1010 MG/TAB PO
[2020-03-15] MEDS ORDERED: TOPROL XL 50MG50 MG PO (14:52)
[2020-03-15] MEDS ORDERED: NORCO 325 MG-101 TAB PO (14:53)
[2020-03-15] MEDS ORDERED: ZOFRAN ODT4 MG PO (14:54)
[2020-03-15] MEDS ORDERED: CYMBALTA 60MG60 MG PO (14:55)
[2020-03-15 15:57] VITALS: BP 150/95; PULSE 99; TEMP 97.3
[2020-03-15 17:20] VITALS: BP 136/85; PULSE 88; TEMP 98.7
--- NOTE | 2020-03-15 17:20 | NUR ---
PATIENT IS A&O. VSS. DENIES PAIN. PATIENT AMBULATED TO BATHROOM AND VOIDED POST OP. HEAD TO TOE WNL. PATIENT WILL DISCHARGE WHEN CRITERIA MEET TONIGHT. FOOD/DRINK AT BEDSIDE. NO C/O N/V. POST OP FLUIDS INFUSING INTO RIGHT HAND IV. CALL LIGHT IN REACH.
[2020-03-15 17:35] VITALS: BP 145/84; PULSE 96
[2020-03-15 17:50] VITALS: BP 128/75; PULSE 95
[2020-03-15 18:05] VITALS: BP 138/90; PULSE 85
--- NOTE | 2020-03-15 18:20 | NUR ---
PATIENT DISCHARGING HOME VIA WC TO PERSONAL VEHICLEL WHERE HER MOTHER IS WAITING. GAVE DISCHARGE INSTRUCTIONS, PRESCRIPTIONS & PATIENT TO CALL FOR F/U APT. ANSWERED QUESTIONS/CONCERNS. DC'D RIGHT HAND IV, COVERED SITE WITH G[employer]ZE [employer]. PATIENT DRESSED AND PACKED PERSONAL BELONGINGS. PATIENT DISCHARGED.
== END 2020-03-15 18:20 | disposition home or self-care (01) ==
LOC: SDCO 14:21
DX: N13.2 Hydronephrosis with renal and ureteral calculous obstruction (principal); I10 Essential (primary) hypertension; E16.2 Hypoglycemia, unspecified; J45.909 Unspecified asthma, uncomplicated; G47.00 Insomnia, unspecified; G43.909 Migraine, unspecified, not intractable, without status migrainosus; F32.9 Major depressive disorder, single episode, unspecified; K21.9 Gastro-esophageal reflux disease without esophagitis; F43.10 Post-traumatic stress disorder, unspecified; Z90.711 Acquired absence of uterus with remaining cervical stump; Z90.721 Acquired absence of ovaries, unilateral; Z88.5 Allergy status to narcotic agent; Z88.0 Allergy status to penicillin; Z88.8 Allergy status to other drugs, medicaments and biological substances; Z88.6 Allergy status to analgesic agent; Z79.899 Other long term (current) drug therapy; Z90.49 Acquired absence of other specified parts of digestive tract
CPT/HCPCS: C1769; C2617; J0690; J1100; J2405; J2704; J3010; J7120; Q9967